=== PATIENT | female | born 1960 | race Caucasian/White ===

== ENCOUNTER 2016-04-26 21:44 | Emergency (ER) | payer MEDICARE, BC ==
[2016-04-27] MEDS ORDERED: Meclizine HCl 25 MG TAB ONE (00:03)
== END 2016-04-27 02:03 | disposition home or self-care (01) ==
LOC: ER 21:44
DX: H81.10 Benign paroxysmal vertigo, unspecified ear (principal); H81.399 Other peripheral vertigo, unspecified ear; I10 Essential (primary) hypertension; E11.9 Type 2 diabetes mellitus without complications; Z79.4 Long term (current) use of insulin; Z79.82 Long term (current) use of aspirin
CPT/HCPCS: 36415; 71010; 80053; 82947; 85025; 93005